=== PATIENT | female | born 1945 | race Caucasian/White ===

== ENCOUNTER 2019-01-31 09:47 | Emergency (ER) | payer SELFPAY ==
[~2019-01-31] VITALS: Ht 157.5 cm; Wt 84.5 kg
[2019-01-31 09:52] VITALS: BP 163/89
[2019-01-31] MEDS ORDERED: METF500T27 PO (10:08)
--- NOTE | 2019-01-31 11:03 | NUR ---
Patient/Caregiver given discharge instructions and they have confirmed that they understand the instructions. Patient ambulatory with steady gait.
== END 2019-01-31 11:07 | disposition home or self-care (01) ==
LOC: ED 10:56
DX: B35.3 Tinea pedis (principal); Z76.0 Encounter for issue of repeat prescription; I10 Essential (primary) hypertension; E11.9 Type 2 diabetes mellitus without complications
CPT/HCPCS: 99283

== ENCOUNTER 2019-06-05 15:53 | Emergency (ER) | payer OTHER ==
[~2019-06-05] VITALS: Ht 165.1 cm; Wt 83.6 kg
[~2019-06-05 15:53] MED LIST: BLOOD PRESSURE MED; METF500T17 PO; METF500T27 PO
--- NOTE | 2019-06-05 16:50 | NUR ---
Pt to 12 from lobby
[2019-06-05] MEDS ORDERED: hydrOXyzine 50MG TABLET ONE (17:19)
[2019-06-05] MEDS ORDERED: FAMOTIDINE 20 MG TABLET ONE (17:19)
[2019-06-05] MEDS ORDERED: FAMOTIDINE 20 MG TABLET PO ONE (17:30)
[2019-06-05 17:43] VITALS: BP 141/61
== END 2019-06-05 17:59 | disposition home or self-care (01) ==
LOC: ED 17:51
DX: L50.9 Urticaria, unspecified (principal); E11.9 Type 2 diabetes mellitus without complications; E78.5 Hyperlipidemia, unspecified; I10 Essential (primary) hypertension
CPT/HCPCS: 82962; 99284; J7512; Q0177